=== PATIENT | male | born 1980 ===

== ENCOUNTER 2017-09-12 15:33 | Emergency (ER) | payer SELFPAY ==
[2017-09-12 15:48] VITALS: O2SAT 98
[2017-09-12] MEDS ORDERED: Dexamethasone 4 mg/1 ml IM STA (17:45)
--- NOTE | 2017-09-12 19:03 | RAD ---
PROCEDURE: Radiographs of the Lumbar Spine. HISTORY: back pain COMPARISON: None available. FINDINGS: BONES: Alignment appears satisfactory. No listhesis. No acute displaced fracture identified. DISC SPACES: Unremarkable. OTHER FINDINGS: None. IMPRESSION: No acute displaced fracture or subluxation identified.
--- NOTE | 2017-09-12 19:43 | C.PDOC ---
History Of Present Illness 37-year-old male, presents to the emergency department with complaints of six month history of lower back pain. Over the past week, it has been becoming more severe and happening more often. Patient is taking OTC meds without relief. Denies trauma, numbness/weakness, or any other associated symptoms. No other complaints at this time. Time Seen by Provider: 09/12/17 17:24 Chief Complaint (Nursing): Back Pain History Per: Patient History/Exam Limitations: no limitations Onset/Duration Of Symptoms: Days Current Symptoms Are (Timing): Still Present Past Medical History Reviewed: Historical Data, Nursing Documentation, Vital Signs Vital Signs: Last Vital Signs Temp 98.6 F 09/12/17 19:46 Pulse 82 09/12/17 19:46 Resp 20 09/12/17 19:46 BP 122/78 09/12/17 19:46 Pulse Ox 98 09/12/17 20:18 Family History: States: No Known Family Hx - Social History Hx Alcohol Use: No Hx Substance Use: No - Immunization History Hx Tetanus Toxoid Vaccination: Yes Hx Influenza Vaccination: No Hx Pneumococcal Vaccination: No Review Of Systems Except As Marked, All Systems Reviewed And Found Negative. Constitutional: Negative for: Fever, Chills Cardiovascular: Negative for: Chest Pain Respiratory: Negative for: Shortness of Breath Gastrointestinal: Negative for: Nausea, Vomiting Musculoskeletal: Positive for: Back Pain Neurological: Negative for: Weakness, Numbness, Headache, Dizziness Physical Exam - Physical Exam Appears: Non-toxic, No Acute Distress Skin: Warm, Dry, No Rash Head: Atraumatic, Normacephalic Eye(s): bilateral: Normal Inspection, PERRL Nose: Normal Oral Mucosa: Moist Lips: Normal Appearing Neck: Normal ROM Cardiovascular: Rhythm Regular, No Murmur Respiratory: Normal Breath Sounds, No Accessory Muscle Use Back: Paraspinal Tenderness (Diffuse paralumbar tenderness) Extremity: Normal ROM Neurological/Psych: Oriented x3, Normal Speech ED Course And Treatment O2 Sat by Pulse Oximetry: 98 Disposition - Disposition Referrals: [facility] [Outside] Disposition: HOME/ ROUTINE Disposition Time: 19:41 Condition: GOOD Additional Instructions: Follow up with the medical doctor/clinic within 1-2 days without fail. Return if worsened. Prescriptions: Cyclobenzaprine [Cyclobenzaprine HCl] 10 mg PO BID #14 tab Naproxen [Naprosyn] 500 mg PO BID #20 tab Instructions: Acute Low Back Pain (DC) Forms: [facility] (Romanian), Work Excuse Print Language: SAMOAN - Clinical Impression Clinical Impression: Low back strain - Scribe Statement The provider has reviewed the documentation as recorded by the Scribe (Santana Hernandez) All medical record entries made by the Scribe were at my direction and personally dictated by me. I have reviewed the chart and agree that the record accurately reflects my personal performance of the history, physical exam, medical decision making, and the department course for this patient. I have also personally directed, reviewed, and agree with the discharge instructions and disposition.
[2017-09-12 19:48] VITALS: BP 122/78; PULSE 82; RESP 20; TEMP 98.6
== END 2017-09-12 19:48 | disposition home or self-care (01) ==
LOC: C.ER 15:33
DX: S39.012A Strain of muscle, fascia and tendon of lower back, initial encounter (principal); X58.XXXA Exposure to other specified factors, initial encounter; Y92.9 Unspecified place or not applicable
CPT/HCPCS: 72100; 96372; 99284; J1100; J1885

== ENCOUNTER 2018-09-03 11:55 | Emergency (ER) | payer OTHER ==
[2018-09-03 12:06] VITALS: BP 123/82; PULSE 61; RESP 18; TEMP 98.1; O2SAT 98
--- NOTE | 2018-09-03 12:36 | C.PDOC ---
History Of Present Illness 38 year old male presents to the emergency department with complaints of pain to his right lower molar which cracked 4 years ago. Patient states that he had not seen a dentist in that time period, but as of 4 days ago the tooth began to bother him pain. Patient reports taking Motrin due to the pain. He denies fever, nausea, vomiting, neck pain, and facial swelling. Patient states that he has an appointment with a dentist on Tuesday09-06-18, and reports no other complaints or medical problems at this time. Time Seen by Provider: 09/03/18 12:07 Chief Complaint (Nursing): Dental Pain History Per: Patient History/Exam Limitations: no limitations Onset/Duration Of Symptoms: Days (4) Current Symptoms Are (Timing): Still Present Quality: Positive for: "Pain" Past Medical History Reviewed: Historical Data, Nursing Documentation, Vital Signs Vital Signs: Last Vital Signs Temp 98.1 F 09/03/18 12:04 Pulse 61 09/03/18 12:04 Resp 18 09/03/18 12:04 BP 123/82 09/03/18 12:04 Pulse Ox 98 09/03/18 12:04 - Medical History PMH: No Chronic Diseases Surgical History: No Surg Hx Family History: States: No Known Family Hx - Social History Hx Alcohol Use: No Hx Substance Use: No - Immunization History Hx Tetanus Toxoid Vaccination: Yes Hx Influenza Vaccination: No Hx Pneumococcal Vaccination: No Review Of Systems Except As Marked, All Systems Reviewed And Found Negative. Constitutional: Positive for: Other (Tooth pain. NO facial swelling.). Negative for: Fever, Chills Gastrointestinal: Negative for: Nausea, Vomiting Musculoskeletal: Negative for: Neck Pain Physical Exam - Physical Exam Appears: Well, Non-toxic, No Acute Distress Skin: Normal Color, Warm, Dry Head: Atraumatic, Normacephalic, No Swelling (facial) Eye(s): bilateral: Normal Inspection, PERRL, EOMI Nose: Normal Oral Mucosa: Moist Teeth: Tender To Palpation (lower left molar. ), Other (lower left molar f ractured to the gumline. ) Gingiva: No Swelling, No Other (mass, fluctuance.) Throat: Normal, No Erythema, No Exudate Neck: Normal, Supple Lymphatic: No Adenopathy (anterior cervical lymphadenopathy) Neurological/Psych: Oriented x3, Normal Speech, Normal Cognition ED Course And Treatment O2 Sat by Pulse Oximetry: 98 (RA) Pulse Ox Interpretation: Normal Medical Decision Making Medical Decision Making: Plan: Motrin 800mg PO Penicillin 500mg PO Disposition - Disposition Disposition: HOME/ ROUTINE Condition: STABLE Additional Instructions: GREER CHASE, thank you for letting us take care of you today. Your provider was Mary Reyes MD and you were treated for DENTAL PAIN. The emergency medical care you received today was directed at your acute symptoms. If you were prescribed any medication, please fill it and take as directed. It may take several days for your symptoms to resolve. Return to the Emergency Department if your symptoms worsen, do not improve, or if you have any other problems. Please go to your dental appoitment on September 06 as previously scheduled. Bring any paperwork you were given at discharge with you along with any medications you are taking to your follow up visit. Our treatment cannot replace ongoing medical care by a primary care provider outside of the emergency department. Thank you for allowing the [facility] team to be part of your care today. Prescriptions: Ibuprofen [Motrin Tab] 800 mg PO TID PRN #30 tab PRN Reason: Pain, Moderate (4-7) Ibuprofen [Motrin Tab] 800 mg PO TID PRN #30 tab PRN Reason: Pain, Moderate (4-7) Penicillin VK [Penicillin VK Tab] 500 mg PO QID #40 tab Instructions: Fractured Tooth (DC), Dental Pain (DC) Forms: Gen Discharge Inst [place]er, [facility] ([place]er) Print Language: SETSWANA - Clinical Impression Clinical Impression: Pain, dental, Fracture of tooth - Scribe Statement The provider has reviewed the documentation as recorded by the Scribe (Chino Luavi) Provider Attestation: All medical record entries made by the Scribe were at my direction and personally dictated by me. I have reviewed the chart and agree that the record accurately reflects my personal performance of the history, physical exam, medical decision making, and the department course for this patient. I have also personally directed, reviewed, and agree with the discharge instructions and disposition.
--- NOTE | 2018-09-03 12:36 | C.PDOC ---
Time Seen by Provider: 09/03/18 12:07 Chief Complaint (Nursing): Dental Pain Past Medical History Vital Signs: Last Vital Signs Temp 98.1 F 09/03/18 12:04 Pulse 61 09/03/18 12:04 Resp 18 09/03/18 12:04 BP 123/82 09/03/18 12:04 Pulse Ox 98 09/03/18 12:04 - Social History Hx Alcohol Use: No Hx Substance Use: No - Immunization History Hx Tetanus Toxoid Vaccination: Yes Hx Influenza Vaccination: No Hx Pneumococcal Vaccination: No ED Course And Treatment O2 Sat by Pulse Oximetry: 98 Disposition Counseled Patient/Family Regarding: Diagnosis, Need For Followup - Disposition Disposition: HOME/ ROUTINE Disposition Time: 12:32 Condition: STABLE Additional Instructions: GREER CHASE, thank you for letting us take care of you today. Your provider was Mary Reyes MD and you were treated for DENTAL PAIN. The emergency medical care you received today was directed at your acute symptoms. If you were prescribed any medication, please fill it and take as directed. It may take several days for your symptoms to resolve. Return to the Emergency Department if your symptoms worsen, do not improve, or if you have any other problems. Please go to your dental appoitment on Tuesday, September 06 as previously scheduled. Bring any paperwork you were given at discharge with you along with any medications you are taking to your follow up visit. Our treatment cannot replace ongoing medical care by a primary care provider outside of the emergency department. Thank you for allowing the [facility] team to be part of your care today. Prescriptions: Ibuprofen [Motrin Tab] 800 mg PO TID PRN #30 tab PRN Reason: Pain, Moderate (4-7) Ibuprofen [Motrin Tab] 800 mg PO TID PRN #30 tab PRN Reason: Pain, Moderate (4-7) Penicillin VK [Penicillin VK Tab] 500 mg PO QID #40 tab Instructions: Fractured Tooth (DC), Dental Pain (DC) Forms: Gen Discharge Inst New Zealander, [facility] (New Zealander) Print Language: BULGARIAN - POA Present On Arrival: None - Clinical Impression Clinical Impression: Pain, dental, Fracture of tooth
== END 2018-09-03 12:57 | disposition home or self-care (01) ==
LOC: C.ER 11:55
DX: K08.89 Other specified disorders of teeth and supporting structures (principal); S02.5XXA Fracture of tooth (traumatic), initial encounter for closed fracture; X58.XXXA Exposure to other specified factors, initial encounter

== ENCOUNTER 2018-09-27 12:01 | Emergency (ER) | payer OTHER ==
[2018-09-27 12:22] VITALS: O2SAT 98
[2018-09-27] MEDS ORDERED: Sodium Chloride 0.9% 1,000 ML IV ONE (13:20)
[2018-09-27] MEDS ORDERED: Iohexol 240 (50 ml) PO STA (13:20)
[2018-09-27] MEDS ORDERED: Sodium Chloride 0.9% 1,000 ML ONE (13:47)
[2018-09-27] MEDS ORDERED: Iohexol 240 (50 ml) ONE (13:47)
[2018-09-27 14:02] LABS: BASO % 0.4 % (0.0-2.0); EOS # 0.1 K/uL (0.0-0.7); EOS % 1.6 % (0.0-4.0); HEMOGLOBIN 14.5 g/dL (12.0-18.0); LYMPH # 2.5 K/uL (1.0-4.3); LYMPH % 26.8 % (20.0-40.0); MEAN CELL VOLUME 86.7 fL (80.0-94.0); MEAN CORPUSCULAR HEMOGLOBIN 29.8 pg (27.0-31.0); MEAN CORPUSCULAR HGB CONC 34.4 g/dL (33.0-37.0); MEAN PLATELET VOLUME 6.9 fL (7.2-11.7); MONO # 0.8 K/uL (0.0-0.8); MONO % 8.8 % (0.0-10.0); NEUT # 5.8 K/uL (1.8-7.0); NEUT % 62.4 % (50.0-75.0); RBC 4.85 Mil/uL (4.40-5.90); WHITE BLOOD COUNT 9.3 K/uL (4.8-10.8)
[2018-09-27 14:04] LABS: INR 1.1
[2018-09-27 14:08] LABS: ALB/GLOB RATIO 1.5 (1.0-2.1); ALBUMIN 4.5 g/dL (3.5-5.0); ALT/SGPT 30 U/L (21-72); AST/SGOT 45 U/L (17-59); BLOOD UREA NITROGEN 18 mg/dL (9-20); CALCIUM 9.3 mg/dl (8.6-10.4); GFR NON-AFRICAN AMERICAN > 60
--- NOTE | 2018-09-27 14:31 | C.PDOC ---
History Of Present Illness 38 y/o male presents to the ER complaining of lower abdominal pain which has been present for the past 3 days. Patient states that he has associated difficulty passing bm. Patient reports that he has to push really hard when he is trying to have a bm. He notes that he has small soft stools every time he has a bm. He noticed "bloody mucous stool" every time. He states that he has cramping abdominal pain every time he has bm. He reports that the symptoms are persistent. He feels nauseous, Otherwise, patient denies having history of hemorrhoids, fever,chills, and vomiting.He did have antibiotics for dental work 2 weeks ago causing diarrhea. Time Seen by Provider: 09/27/18 13:14 Chief Complaint (Nursing): GI Problem History Per: Patient History/Exam Limitations: no limitations Onset/Duration Of Symptoms: Days Current Symptoms Are (Timing): Still Present Severity: Moderate Past Medical History Reviewed: Historical Data, Nursing Documentation, Vital Signs Vital Signs: Last Vital Signs Temp 98.3 F 09/27/18 12:20 Pulse 106 H 09/27/18 12:20 Resp 18 09/27/18 12:20 BP 128/80 09/27/18 12:20 Pulse Ox 98 09/27/18 12:20 - Medical History PMH: No Chronic Diseases Surgical History: No Surg Hx Family History: States: No Known Family Hx - Social History Hx Alcohol Use: No Hx Substance Use: No - Immunization History Hx Tetanus Toxoid Vaccination: Yes Hx Influenza Vaccination: No Hx Pneumococcal Vaccination: No Review Of Systems Constitutional: Negative for: Fever, Chills Gastrointestinal: Positive for: Nausea, Abdominal Pain, Diarrhea, Constipation, Other (blood in stool). Negative for: Vomiting Genitourinary: Negative for: Dysuria, Hematuria Physical Exam - Physical Exam Appears: Non-toxic, No Acute Distress Skin: Normal Color, Warm, Dry Head: Atraumatic, Normacephalic Eye(s): bilateral: Normal Inspection Nose: Normal Oral Mucosa: Moist Neck: Supple Chest: Symmetrical Cardiovascular: Rhythm Regular Respiratory: Normal Breath Sounds, No Rales, No Rhonchi, No Wheezing Gastrointestinal/Abdominal: Normal Exam, Soft, No Tenderness, No Guarding, No Rebound Neurological/Psych: Oriented x3, Normal Speech ED Course And Treatment - Laboratory Results Result Diagrams: 09/27/18 13:51 09/27/18 13:51 Lab Results: PT 12.0 SECONDS (9.7-12.2) 09/27/18 13:51 INR 1.1 09/27/18 13:51 APTT 38 SECONDS (21-34) H 09/27/18 13:51 Total Bilirubin 0.3 mg/dL (0.2-1.3) 09/27/18 13:51 AST 45 U/L (17-59) 09/27/18 13:51 ALT 30 U/L (21-72) 09/27/18 13:51 Alkaline Phosphatase 64 U/L (38-126) 09/27/18 13:51 Total Protein 7.6 g/dL (6.3-8.3) 09/27/18 13:51 Albumin 4.5 g/dL (3.5-5.0) 09/27/18 13:51 Globulin 3.1 gm/dL (2.2-3.9) 09/27/18 13:51 Albumin/Globulin Ratio 1.5 (1.0-2.1) 09/27/18 13:51 Lab Interpretation: Abnormal (C diff positive) O2 Sat by Pulse Oximetry: 98 (RA) Pulse Ox Interpretation: Normal - CT Scan/US CT- Abd & Pelv. Other Rad Studies (CT/US): Read By Radiologist, Radiology Report Reviewed CT/US Interpretation: PROCEDURE: CT Abdomen and Pelvis without IV contrast. HISTORY: abdominal pain with bloody stool. COMPARISON: None available. TECHNIQUE: Contiguous axial images of the abdomen and pelvis. Oral contrast was administered. No IV contrast given. Coronal and Sagittal reformats generated and reviewed. Radiation dose: Total exam DLP = 1045.94 mGy-cm. This CT exam was performed using one or more of the following dose reduction techniques: Automated exposure control, adjustment of the mA and/or kV according to patient size, and/or use of iterative reconstruction technique. FINDINGS: There is limited evaluation of the solid organs without the administration of IV contrast. LOWER THORAX: No visible consolidation, pleural effusion, or pneumothorax. Visualized portions of the heart appear within normal limits of size. LIVER: Unremarkable unenhanced appearance. GALLBLADDER AND BILE DUCTS: Unremarkable unenhanced appearance. PANCREAS: Unremarkable unenhanced appearance. SPLEEN: Unremarkable unenhanced appearance. ADRENALS: Unremarkable unenhanced appearance. KIDNEYS AND URETERS: No hydronephrosis or obstructing renal calculus. BLADDER: The urinary bladder appears unremarkable. REPRODUCTIVE: Prostate gland measures approximately 3.7 x 4.3 cm. APPENDIX: The appendix appears within normal limits of caliber. No secondary signs of a cute appendicitis. BOWEL: The stomach is nondistended. The bowel loops appear within normal limits of caliber without evidence of intestinal obstruction. Diverticulosis. Marked colonic wall thickening of the left/rectosigmoid colon as well as rectum. Mild associated inflammatory stranding. Correlate clinically for colitis as well as proctitis. PERITONEUM: No significant free fluid. No definite free air. LYMPH NODES: No bulky lymphadenopathy identified. VASCULATURE: No aortic aneurysm. BONES: Degenerative changes most pronounced at L5-S1 with anterior and posterior osteophyte formation and intervertebral disc space narrowing. OTHER FINDINGS: Tiny fat containing umbilical hernia. IMPRESSION: Marked colonic wall thickening of the left/rectosigmoid colon as well as rectum. Mild associated inflammatory stranding. Correlate clinically for colitis as well as proctitis. Diverticulosis. Prostate gland appears enlarged. Correlate with PSA. Additional findings as above. Reevaluation Time: 16:48 Medical Decision Making Medical Decision Making: Plan: --Labs --CT- Abd & Pelv. --IV Fluids Disposition Counseled Patient/Family Regarding: Studies Performed, Diagnosis, Need For Followup, Rx Given - Disposition Referrals: [facility] [Outside] Disposition: HOME/ ROUTINE Disposition Time: 20:22 Condition: STABLE Prescriptions: metroNIDAZOLE [Flagyl] 500 mg PO QID #40 tab Instructions: Clostridium difficile, Colitis Forms: [facility] (Upper Sorbian) Print Language: SYRIAC - Clinical Impression Clinical Impression: C. difficile colitis - Scribe Statement The provider has reviewed the documentation as recorded by the Preetibe Washington Escamilla Provider Attestation: All medical record entries made by the Scribe were at my direction and personally dictated by me. I have reviewed the chart and agree that the record accurately reflects my personal performance of the history, physical exam, medical decision making, and the department course for this patient. I have also personally directed, reviewed, and agree with the discharge instructions and disposition.
[2018-09-27 15:35] VITALS: RESP 20
--- NOTE | 2018-09-27 15:53 | CT ---
PROCEDURE: CT Abdomen and Pelvis without IV contrast. HISTORY: abdominal pain with bloody stool COMPARISON: None available. TECHNIQUE: Contiguous axial images of the abdomen and pelvis. Oral contrast was administered. No IV contrast given. Coronal and Sagittal reformats generated and reviewed. Radiation dose: Total exam DLP = 1045.94 mGy-cm. This CT exam was performed using one or more of the following dose reduction techniques: Automated exposure control, adjustment of the mA and/or kV according to patient size, and/or use of iterative reconstruction technique. FINDINGS: There is limited evaluation of the solid organs without the administration of IV contrast. LOWER THORAX: No visible consolidation, pleural effusion, or pneumothorax. Visualized portions of the heart appear within normal limits of size. LIVER: Unremarkable unenhanced appearance. GALLBLADDER AND BILE DUCTS: Unremarkable unenhanced appearance. PANCREAS: Unremarkable unenhanced appearance. SPLEEN: Unremarkable unenhanced appearance. ADRENALS: Unremarkable unenhanced appearance. KIDNEYS AND URETERS: No hydronephrosis or obstructing renal calculus. BLADDER: The urinary bladder appears unremarkable. REPRODUCTIVE: Prostate gland measures approximately 3.7 x 4.3 cm. APPENDIX: The appendix appears within normal limits of caliber. No secondary signs of acute appendicitis. BOWEL: The stomach is nondistended. The bowel loops appear within normal limits of caliber without evidence of intestinal obstruction. Diverticulosis. Marked colonic wall thickening of the left/rectosigmoid colon as well as rectum. Mild associated inflammatory stranding. Correlate clinically for colitis as well as proctitis. PERITONEUM: No significant free fluid. No definite free air. LYMPH NODES: No bulky lymphadenopathy identified. VASCULATURE: No aortic aneurysm. BONES: Degenerative changes most pronounced at L5-S1 with anterior and posterior osteophyte formation and intervertebral disc space narrowing. OTHER FINDINGS: Tiny fat containing umbilical hernia. IMPRESSION: Marked colonic wall thickening of the left/rectosigmoid colon as well as rectum. Mild associated inflammatory stranding. Correlate clinically for colitis as well as proctitis. Diverticulosis. Prostate gland appears enlarged. Correlate with PSA. Additional findings as above.
[2018-09-27 21:00] VITALS: BP 112/72; PULSE 82; TEMP 98.4
== END 2018-09-27 21:00 | disposition home or self-care (01) ==
LOC: C.ER 12:01
DX: A04.72 Enterocolitis due to Clostridium difficile, not specified as recurrent (principal)
CPT/HCPCS: 74176; 80053; 85025; 85610; 85730; 87230; 96360; 99285; J7030; Q9966